=== PATIENT | male | born 1990 | race Hispanic/Latino ===

== ENCOUNTER 2023-07-25 22:18 | Emergency (ER) | payer SELFPAY ==
[2023-07-25] MEDS ORDERED: Ketorolac Tromethamine 30 MG/ML VIAL ONE (22:57)
[2023-07-25 23:35] LABS: Bacteria/HPF None Seen HPF (None Seen); Bilirubin Negative (Negative); Blood, Urine Negative (Negative); CAUTI Indications for Culture Dysuria,urgency,freq; Clarity Clear (Clear); Glucose, Urine (Dipstick) Normal (Negative); Ketone, Urine Negative (Negative); Leukocyte Negative Leu/uL (Negative); Nitrite Negative (Negative); Protein, Urine (Dipstick) Negative (Neg-Trace); RBC/HPF 0-3 HPF (0-3); Specific Gravity, Urine 1.023 (1.002-1.036); Squamous Epithelial None Seen HPF (0-3); WBC/HPF 0-3 HPF (0-3); pH, Urine 6.5 (5.0-9.0)
[2023-07-25 23:40] LABS: Urine Culture Reflex No No
[2023-07-26] MEDS ORDERED: cefTRIAXone (ROCEPHIN) 500 MG VIAL ONE (01:06)
[2023-07-26] MEDS ORDERED: Lidocaine 1% MPF 2 ML VIAL ONE (01:08)
[2023-07-26 16:35] LABS: Chlam.trachomatis by PCR,Urine Not Detected (NotDetected); GC N.gonorrhoeae PCR,UrineVOID Not Detected (NotDetected)
== END 2023-07-26 01:50 | disposition home or self-care (01) ==
LOC: ERS 22:18
DX: R39.11 Hesitancy of micturition (principal); E11.9 Type 2 diabetes mellitus without complications; Z79.84 Long term (current) use of oral hypoglycemic drugs
CPT/HCPCS: 76870; 81001; 87491; 87591; 93976; 96372; J0696; J1885

== ENCOUNTER 2024-05-31 09:54 | Outpatient (CLI) | payer OTHER | END 2024-05-31 09:55 | disposition home or self-care (01) | LOC: BICRAD 09:54 | DX: R05.3 Chronic cough (principal) | CPT/HCPCS: 71046 ==